=== PATIENT | male | born 1985 | race Caucasian/White ===

== ENCOUNTER 2019-05-07 05:40 | Emergency (ER) | payer OTHER ==
[~2019-05-07] VITALS: Ht 162.6 cm; Wt 8.2 kg
[2019-05-07 05:42] VITALS: BP 137/77
--- NOTE | 2019-05-07 05:48 | NUR ---
ASSESSMENT COMPLETED AT THIS TIME. SITTING UP IN CHAIR. HANDS BEHIND BACK IN CUFFS. CHP AT CHAIRSIDE.
--- NOTE | 2019-05-07 05:52 | NUR ---
DR LEMUS AT CHAIRSIDE
[2019-05-07 06:03] VITALS: BP 137/77
--- NOTE | 2019-05-07 06:04 | NUR ---
Patient discharged with v/s stable. Written and verbal after care instructions given and explained. Patient verbalized understanding. Ambulatory with steady gait in custody, escorted by P. All questions addressed prior to discharge. Advised to follow up with PMD.
== END 2019-05-07 06:03 ==
LOC: MED 05:40
DX: F10.129 Alcohol abuse with intoxication, unspecified (principal); F17.210 Nicotine dependence, cigarettes, uncomplicated; Z02.89 Encounter for other administrative examinations
CPT/HCPCS: 99283